=== PATIENT | male | born 1955 | race Caucasian/White ===

== ENCOUNTER 2022-11-17 10:55 | Day surgery (SDC) | payer BC ==
[~2022-11-17 10:55] MED LIST: Albuterol 0.083% 2.5 MG/3 ML Neb Soln NEB PRN; HYDROmorphone 1 MG/ML Syringe IVPUSH PRN; Lactated Ringers 1,000 ML IV SCH; Metoclopramide 10 MG/2 ML SDV IVPUSH PRN; Morphine 2 MG/ML SYRINGE IVPUSH PRN; Naloxone 0.4 MG/ML SDV IVPUSH PRN; Ondansetron 4 MG/2 ML SDV IVPUSH PRN; fentaNYL 50 MCG/ML SDV IVPUSH PRN
[2022-11-17] MEDS ORDERED: Rocuronium Bromide 50 MG/5 ML Syringe ONE (12:05)
[2022-11-17] MEDS ORDERED: Lidocaine 2% 5 ML SDV ONE (12:05)
[2022-11-17] MEDS ORDERED: Ketorolac 30 MG/ML SDV ONE (12:05)
[2022-11-17] MEDS ORDERED: Dexamethasone 4 MG/ML 5 ML MDV ONE (12:05)
[2022-11-17] MEDS ORDERED: Ondansetron 4 MG/2 ML SDV ONE (12:05)
[2022-11-17] MEDS ORDERED: Metoclopramide 10 MG/2 ML SDV IVPUSH PRN (12:08)
[2022-11-17] MEDS ORDERED: fentaNYL 50 MCG/ML SDV IVPUSH PRN (12:08)
[2022-11-17] MEDS ORDERED: HYDROmorphone 1 MG/ML Syringe IVPUSH PRN (12:08)
[2022-11-17] MEDS ORDERED: Morphine 2 MG/ML SYRINGE IVPUSH PRN (12:08)
[2022-11-17] MEDS ORDERED: Ondansetron 4 MG/2 ML SDV IVPUSH PRN (12:08)
[2022-11-17] MEDS ORDERED: Albuterol 0.083% 2.5 MG/3 ML Neb Soln NEB PRN (12:08)
[2022-11-17] MEDS ORDERED: Naloxone 0.4 MG/ML SDV IVPUSH PRN (12:08)
[2022-11-17] MEDS ORDERED: fentaNYL 100 MCG/2 ML SDV ONE ×2 (12:22→12:40)
[2022-11-17] MEDS ORDERED: Propofol 200 MG/20 ML SDV ONE (12:22)
[2022-11-17] MEDS ORDERED: ceFAZolin 2 GM Vial ONE (12:30)
[2022-11-17] MEDS ORDERED: ceFAZolin 2 GM in Premix Bag 1 BAG IV ONE (12:30)
[2022-11-17] MEDS ORDERED: Water For Injection, Sterile 20 ML ONE (12:30)
[2022-11-17] MEDS ORDERED: Glycopyrrolate 0.2 MG/ML SDV ONE (12:46)
[2022-11-17] MEDS ORDERED: Bupivacaine 0.5% 30 ML SDV ONE (13:42)
[2022-11-17 14:51] VITALS: BP 138/84; PULSE 49
== END 2022-11-17 15:08 | disposition home or self-care (01) ==
LOC: MW.SDS 10:55
PROVIDERS: ATTEND Podiatrist Foot & Ankle Surgery
DX: M89.9 Disorder of bone, unspecified (principal); E03.9 Hypothyroidism, unspecified; M19.90 Unspecified osteoarthritis, unspecified site; Z79.899 Other long term (current) drug therapy; Z79.890 Hormone replacement therapy; Z87.891 Personal history of nicotine dependence; Z98.1 Arthrodesis status; Z98.890 Other specified postprocedural states
CPT/HCPCS: 28104; 76000; J0131; J0690; J1100; J1885; J2704; J3010; J3490; J7120; 01480; J2405

== ENCOUNTER 2024-07-17 20:20 | Emergency (ER) | payer MEDICARE, OTHER ==
[2024-07-17] MEDS ORDERED: Sodium Chloride 0.9% 10 ML Syringe FLUSH PRN (20:33)
[2024-07-17] MEDS ORDERED: Sodium Chloride 0.9% 2.5 ML Syringe FLUSH PRN (20:33)
[2024-07-17 20:40] LABS: BASOPHILS ABSOLUTE AUTO 0.12 K/uL (0.00-0.20); BASOPHILS PERCENT AUTO 0.6 % (0.0-1.0); HEMATOCRIT 42.8 % (42.0-52.0); HEMOGLOBIN 14.9 g/dL (14.0-18.0); IMMATURE GRAN ABSOLUTE AUTO 0.13 K/uL (0.00-0.05); IMMATURE GRAN PERCENT AUTO 0.7 % (0.0-0.4); LYMPHOCYTES ABSOLUTE AUTO 2.75 K/uL (1.00-4.80); LYMPHOCYTES PERCENT AUTO 14.2 % (24.0-44.0); MEAN CORPUSCULAR HEMOGLOBIN 30.2 pg (28.0-32.0); MEAN CORPUSCULAR HGB CONC 34.8 g/dL (32.0-36.0); MEAN CORPUSCULAR VOLUME 86.8 fL (83.0-99.0); MEAN PLATELET VOLUME 9.1 fL (9.4-12.4); MONOCYTES ABSOLUTE AUTO 1.46 K/uL (0.00-0.80); MONOCYTES PERCENT AUTO 7.6 % (0.0-8.0); NEUTROPHILS ABSOLUTE AUTO 14.64 K/uL (1.80-7.70); NEUTROPHILS PERCENT AUTO 75.9 % (41.0-71.0); PLATELET COUNT,PLT 298 K/uL (150-400); RED BLOOD CELL COUNT 4.93 M/uL (4.52-5.90)
[2024-07-17] MEDS: Morphine 4 MG/ML Syringe IVPUSH ONE ×2 (20:45→21:17)
[2024-07-17] MEDS: Clopidogrel 75 MG Tab PO ONE ×2 (20:46→21:01)
[2024-07-17] MEDS: Ondansetron 4 MG/2 ML SDV IVPUSH ONE (20:46)
[2024-07-17] MEDS: Sodium Chloride 0.9% 1,000 ML IV ONE (20:49)
[2024-07-17] MEDS: Heparin Sodium 5,000 Units/ML Vial IVPUSH ONE (20:50)
[2024-07-17 20:51] LABS: INR 1.04 (0.86-1.11); PTT,PARTIAL THROMBOPLSTIN TIME 22.2 SEC (23.9-30.7)
[2024-07-17] MEDS: Tenecteplase 50 MG Kit IV ONE (20:51)
[2024-07-17 21:07] LABS: A/G RATIO 1.1 (0.9-1.6); ALBUMIN 4.2 g/dL (3.4-5.0); BILIRUBIN TOTAL 0.7 mg/dL (0.2-1.0); CALCIUM 9.7 mg/dL (8.5-10.1); CARBON DIOXIDE,CO2 25.3 mmol/L (21.0-32.0); CREATININE 1.2 mg/dL (0.8-1.3); EST CRCL DRUG DOSING (CG) 54.64 mL/min; POTASSIUM,K 4.1 mmol/L (3.5-5.1); PROTEIN TOTAL,TP 8.1 g/dL (6.4-8.2)
[2024-07-17 21:23] VITALS: BP 122/66; PULSE 67
[2024-07-17] MEDS: Amiodarone In Dextrose,Iso-Osm 150 MG in Premix Bag 1 BAG IV ONE (21:43)
== END 2024-07-17 22:14 ==
LOC: MW.ED 20:20
DX: I21.3 ST elevation (STEMI) myocardial infarction of unspecified site (principal); I10 Essential (primary) hypertension; E03.9 Hypothyroidism, unspecified; Z79.899 Other long term (current) drug therapy; Z75.8 Other problems related to medical facilities and other health care
CPT/HCPCS: 36415; 71045; 80053; 83735; 83880; 84484; 85025; 85610; 85730; 93005; 96374; 96375; 96376; 99285; A9270; J0282; J1644; J2270; J2405; J3101; J7030; U0002; 93010; 99291; 99292